=== PATIENT | female | born 1985 | race Caucasian/White ===

== ENCOUNTER 2017-12-09 18:43 | Emergency (ER) | payer BC, OTHER ==
[~2017-12-09] VITALS: Ht 154.9 cm; Wt 89.6 kg
[~2017-12-09 18:43] MED LIST: IBUP600T44 PO; PRENTAB26 PO; VALA1TAB2 PO
[2017-12-09 18:50] VITALS: TEMP 36.7; Ht 154.9 cm; Wt 89.6 kg
[2017-12-09] MEDS ORDERED: DIAZEPAM 5MG TAB PO STA ×2 (19:33→21:39)
[2017-12-09] MEDS ORDERED: KETOROLAC TROMETHAMINE 30 MG/ML VIAL IV STA (19:33)
[2017-12-09] MEDS ORDERED: SODIUM CHLORIDE 0.9% 1000ML 1,000 ML IV STA (19:33)
[2017-12-09] MEDS ORDERED: DEXAMETHASONE **PF** INJ 10 MG/ML VIAL IV ONE (19:45)
[2017-12-09 20:07] LABS: BASO % 0.2 %; BASO ABS # 0.02 K/uL (0-0.2); EOS % 1.8 %; EOS ABS # 0.16 K/uL (0-0.5); HEMATOCRIT 43.9 % (37-47); HEMOGLOBIN 15.3 g/dL (12.0-16.0); IG# 0.02 K/uL (0.00-0.02); LYMPH % 32.8 %; LYMPH ABS # 2.88 K/uL (1.2-3.4); MEAN CORPUSCULAR HGB CONC 34.9 g/dl (32-36); MEAN PLATELET VOLUME 8.9 fL (7.4-10.4); MONO % 6.7 %; MONO ABS # 0.59 K/uL (0.11-0.59); NEUT % 58.3 %; NEUT ABS # 5.11 K/uL (1.4-6.5); PLATELET COUNT 240 K/uL (130-400); RED CELL DISTRIBUTION WIDTH CV 12.6 % (11.5-14.5); RED CELL DISTRIBUTION WIDTH SD 40.6 fL (36.4-46.3); WHITE BLOOD COUNT 8.78 K/uL (4.8-10.8)
[2017-12-09 20:28] LABS: ALBUMIN 3.9 gm/dl (3.4-5.0); ALT/SGPT 47 U/L (12-78); AST/SGOT 23 U/L (15-37); BLOOD UREA NITROGEN 8 mg/dl (7-18); CALCIUM 9.2 mg/dl (8.5-10.1); CARBON DIOXIDE 28 mmol/L (21-32); CREATININE 0.88 mg/dl (0.60-1.20); GLUCOSE 77 mg/dl (70-99); LIPASE 131 U/L (73-393); POTASSIUM 4.4 mmol/L (3.5-5.1); SODIUM 136 mmol/L (136-145); TOTAL PROTEIN 7.9 gm/dl (6.4-8.2)
[2017-12-09 20:29] LABS: ALKALINE PHOSPHATASE 64 U/L (45-117)
--- NOTE | 2017-12-09 20:57 | DIAGNOSTIC IMAGING REPORT ---
EXAMINATION: RENAL ULTRASOUND CLINICAL HISTORY: right flank pain COMPARISON STUDY: CT scan performed May 2009 FINDINGS: The right kidney measures 10.2 cm. The left kidney measures 10.1 cm. There is no evidence of hydronephrosis. There are no renal masses. No bladder abnormalities are visualized. Bilateral ureteral jets were visualized. There is a nonspecific 11 mm hypoechoic focus within the right lobe of the liver. IMPRESSION : 1. Indeterminate 11 mm hypoechoic focus within the right lobe of the liver 2. Otherwise normal renal ultrasound. No evidence of hydronephrosis. Electronically signed by: Bertin Landa M.D. 12/09/2017 8:56 PM Dictated Date/Time: 12/09/2017 8:54 PM
[2017-12-09] MEDS ORDERED: IBUP-1451 PO (21:37)
--- NOTE | 2017-12-09 21:39 | EMERGENCY ROOM VISIT NOTE ---
History Report prepared by Francisca: Sydney Marino Under the Supervision of: Dr. Gold Summers M.D. First contact with patient: 19:05 Chief Complaint: BACK PAIN Stated Complaint: EXTREME LOWER BACK PAIN History of Present Illness The patient is a 32 year old female who presents to the Emergency Room with complaints of worsening back pain starting 2 days ago. The pain started in her right lower back and has spread across her lower back. The pain started after she bent over. She has been taking ibuprofen and Tylenol to no significant relief. She is able to walk around. She denies any fever, chills, cough, congestion, nausea, vomiting, urinary symptoms, or diarrhea. She notes that she has intermittent spotting from her Mirena. She denies having any increased bleeding. She has not had back pain from her Mirena before. He has a history of tubal ligation. She notes that she fell 1 week ago and landed on her knee. She did not have back pain after the fall. Source of History: patient Onset: 2 days ago Position: back (lower) Quality: other (pain) Timing: worsening Associated Symptoms: No fevers, No chills, No cough, No nausea, No vomiting , No diarrhea, No urinary symptoms Review of Systems See HPI for pertinent positives and negatives. A total of ten systems were reviewed and were otherwise negative. Past Medical & Surgical Medical Problems: (1) Anxiety (2) Vaginal delivery Family History Cancer Diabetes mellitus Gallbladder disease Hypertension Kidney disease Kidney stones Social History Smoking Status: Former Smoker Marital Status: Occupation Status: employed Current/Historical Medications Scheduled Multivit/Min/Iron/Fol Ac/Pren ( Vitamin), 1 TAB PO DAILY Valacyclovir Hcl (Valtrex), 1,000 MG PO TID Scheduled PRN Ibuprofen (Motrin), 600 MG PO Q4H PRN Ibuprofen Tab (Motrin), 800 MG PO Q8H PRN for Pain Allergies Coded Allergies: Cat Dander (Unverified Allergy, ., 09/04/12) Dog Dander (Unverified Allergy, ., 09/04/12) Physical Exam Vital Signs Date Time Temp Pulse Resp B/P (MAP) Pulse Ox O2 Delivery O2 Flow Rate FiO2 12/09/17 22:03 90 18 118/65 97 12/09/17 18:50 36.7 96 16 147/100 98 Room Air Physical Exam GENERAL: Awake, alert, well-appearing, in no distress HENT: Normocephalic, atraumatic. Dry mucous membranes. EYES: Normal conjunctiva. Sclera non-icteric. NECK: Supple. No nuchal rigidity. FROM. No JVD. RESPIRATORY: Clear to auscultation. CARDIAC: Regular rate, normal rhythm. Extremities warm and well perfused. Pulses equal. ABDOMEN: Soft, non-distended. No tenderness to palpation. No rebound or guarding. No masses. RECTAL: Deferred. MUSCULOSKELETAL: Chest examination reveals no tenderness. Mild lumbar tenderness to palpation, no midline pain or step offs. Negative straight leg raise. There is no CVA tenderness to palpation. No joint edema. LOWER EXTREMITIES: Calves are equal size bilaterally and non-tender. No edema. No discoloration. NEURO: Normal sensorium. No sensory or motor deficits noted. 5/5 strength lower extremities including L5. SILT. SKIN: No rash or jaundice noted. Medical Decision & Procedures ER Provider Diagnostic Interpretation: Radiology results as stated below per my review and radiologist interpretation: EXAMINATION: RENAL ULTRASOUND CLINICAL HISTORY: right flank pain COMPARISON STUDY: CT scan performed May 2009 FINDINGS: The right kidney measures 10.2 cm. The left kidney measures 10.1 cm. There is no evidence of hydronephrosis. There are no renal masses. No bladder abnormalities are visualized. Bilateral ureteral jets were visualized. There is a nonspecific 11 mm hypoechoic focus within the right lobe of the liver. IMPRESSION : 1. Indeterminate 11 mm hypoechoic focus within the right lobe of the liver 2. Otherwise normal renal ultrasound. No evidence of hydronephrosis. Electronically signed by: Bertin Landa M.D. 12/09/2017 8:56 PM Dictated Date/Time: 12/09/2017 8:54 PM Laboratory Results 12/09/17 19:55 Red Blood Count 4.93, Mean Corpuscular Volume 89.0, Mean Corpuscular Hemoglobin 31.0, Mean Corpuscular Hemoglobin Concent 34.9, Mean Platelet Volume 8.9, Neutrophils (%) (Auto) 58.3, Lymphocytes (%) (Auto) 32.8, Monocytes (%) (Auto) 6.7, Eosinophils (%) (Auto) 1.8, Basophils (%) (Auto) 0.2, Neutrophils # (Auto) 5.11, Lymphocytes # (Auto) 2.88, Monocytes # (Auto) 0.59, Eosinophils # (Auto) 0.16, Basophils # (Auto) 0.02 12/09/17 19:55 Test 12/09/17 19:00 12/09/17 19:55 Urine Color YELLOW Urine Appearance CLOUDY (CLEAR) Urine pH 5.0 (4.5-7.5) Urine Specific [place] 1.011 (1.000-1.030) Urine Protein NEG (NEG) Urine Glucose (UA) NEG (NEG) Urine Ketones NEG (NEG) Urine Occult Blood 1+ (NEG) Urine Nitrite NEG (NEG) Urine Bilirubin NEG (NEG) Urine Urobilinogen NEG (NEG) Urine Leukocyte Esterase TRACE (NEG) Urine WBC (Auto) 1-5 /hpf (0-5) Urine RBC (Auto) 0-4 /hpf (0-4) Urine Hyaline Casts (Auto) 0 /lpf (0-5) Urine Epithelial Cells (Auto) 10-20 /lpf (0-5) Urine Bacteria (Auto) NEG (NEG) White Blood Count 8.78 K/uL (4.8-10.8) Red Blood Count 4.93 M/uL (4.2-5.4) Hemoglobin 15.3 g/dL (12.0-16.0) Hematocrit 43.9 % (37-47) Mean Corpuscular Volume 89.0 fL (80-100) Mean Corpuscular Hemoglobin 31.0 pg (25-34) Mean Corpuscular Hemoglobin Concent 34.9 g/dl (32-36) Platelet Count 240 K/uL (130-400) Mean Platelet Volume 8.9 fL (7.4-10.4) Neutrophils (%) (Auto) 58.3 % Lymphocytes (%) (Auto) 32.8 % Monocytes (%) (Auto) 6.7 % Eosinophils (%) (Auto) 1.8 % Basophils (%) (Auto) 0.2 % Neutrophils # (Auto) 5.11 K/uL (1.4-6.5) Lymphocytes # (Auto) 2.88 K/uL (1.2-3.4) Monocytes # (Auto) 0.59 K/uL (0.11-0.59) Eosinophils # (Auto) 0.16 K/uL (0-0.5) Basophils # (Auto) 0.02 K/uL (0-0.2) RDW Standard Deviation 40.6 fL (36.4-46.3) RDW Coefficient of Variation 12.6 % (11.5-14.5) Immature Granulocyte % (Auto) 0.2 % Immature Granulocyte # (Auto) 0.02 K/uL (0.00-0.02) Anion Gap 3.0 mmol/L (3-11) Est Creatinine Clear Calc Drug Dose 94.3 ml/min Estimated GFR () 101.5 Estimated GFR (Non- 87.6 BUN/Creatinine Ratio 8.8 (10-20) Calcium Level 9.2 mg/dl (8.5-10.1) Total Bilirubin 0.2 mg/dl (0.2-1) Direct Bilirubin < 0.1 mg/dl (0-0.2) Aspartate Amino Transf (AST/SGOT) 23 U/L (15-37) Alanine Aminotransferase (ALT/SGPT) 47 U/L (12-78) Alkaline Phosphatase 64 U/L (45-117) Total Protein 7.9 gm/dl (6.4-8.2) Albumin 3.9 gm/dl (3.4-5.0) Lipase 131 U/L (73-393) Laboratory results reviewed by me Medications Administered Medications (Trade) Dose Ordered Sig/Everardo Route Start Time Stop Time Status Last Admin Dose Admin Sodium Chloride 1,000 ml @ 999 mls/hr Q1H1M STAT IV 12/09/17 19:33 12/09/17 20:33 DC 12/09/17 20:00 999 MLS/HR Ketorolac Tromethamine (Toradol Inj) 15 mg NOW STAT IV 12/09/17 19:33 12/09/17 19:36 DC 12/09/17 20:02 15 MG Dexamethasone Sodium Phosphate (Dexamethasone Inj Pf) 10 mg NOW ONCE IV 12/09/17 19:45 12/09/17 19:46 DC 12/09/17 20:01 10 MG Diazepam (Valium Tab) 5 mg NOW STAT PO 12/09/17 19:33 12/09/17 19:36 DC 12/09/17 20:02 5 MG Diazepam (Valium Tab) 2 mg NOW STAT PO 12/09/17 21:39 12/09/17 21:41 DC 12/09/17 21:39 2 MG ED Course 1924: The patient was evaluated in room C8. A complete history and physical exam was performed. 2124: I reevaluated the patient. Discussed results and discharge instructions: She verbalized understanding and agreement. The patient is ready for discharge. Medical Decision I reviewed the patient's past medical history, medications, and the nursing notes as described above. Differential diagnosis: muscular strain, lumbar radiculopathy, disc herniation, disc bulge, UTI, pyelonephritis, ureteral stone. The patient is a 32-year-old woman who presents emergency Department with lumbar back pain in the setting of bending over to pick something up on Saturday per hpi. Arrival the patient is no acute distress, afebrile stable vital signs. On exam, the patient has mild tenderness to the bilateral lumbar muscles without any midline tenderness or step-offs. The patient also has mild suprapubic tenderness but no peritoneal signs. Labs are unremarkable including WBC within normal limits. UA negative for infection. Renal US negative for hydronephrosis. Patient feeling improved after IV fluid hydration, Toradol, dexamethasone, Valium. Sx most consistent with muscular strain. Findings and plan for follow-up reviewed with patient. Patient agreeable and d/c'd per discharge instructions. Medication Reconcilliation Current Medication List: was personally reviewed by me Blood Pressure Screening Patient's blood pressure: Elevated blood pressure Blood pressure disposition: Elevated BP felt to be situational Impression Primary Impression: Strain of lumbar paraspinous muscle Scribe Attestation The scribe's documentation has been prepared under my direction and personally reviewed by me in its entirety. I confirm that the note above accurately reflects all work, treatment, procedures, and medical decision making performed by me. Departure Information Dispostion Home / Self-Care Prescriptions Ibuprofen Tab (MOTRIN) 800 Mg Tab 800 MG PO Q8H Y for Pain for 7 Days, #21 TAB Prov: Gold Summers M.D. 12/09/17 Referrals Kalyan Elaine D.O. (PCP) Patient Instructions ED Exercises Lumbar Muscles, ED Sprain Strain Lumbar, My [facility] Additional Instructions Please follow up with your primary care physician within a week for re- evaluation. You likely have a muscle strain. Otherwise, your exam, lab results, ultrasound of your kidneys did not show signs of an emergent condition at this time. Acetaminophen and Ibuprofen for pain as needed. Heating pad for muscle relaxation at 20 minute intervals throughout the day for muscle relaxation. Valium as needed for additional muscle relaxation. Ensure hydration. Return to the emergency department for worsening symptoms as described in the accompanying instructions. Work Instructions Return To Work: 5 days Additional Instructions: Please excuse from work or allow modified duties for the next 5 days and thereafter as determined by her doctor.
[2017-12-09] MEDS ORDERED: EMPTY 8 DRAM VIAL ONE (21:47)
[2017-12-09 22:03] VITALS: BP 118/65; PULSE 90; O2SAT 97
== END 2017-12-09 22:05 | disposition home or self-care (01) ==
LOC: C.EDB 18:46 → C.EDC 22:05
DX: S39.012A Strain of muscle, fascia and tendon of lower back, initial encounter (principal); X58.XXXA Exposure to other specified factors, initial encounter; Z97.5 Presence of (intrauterine) contraceptive device; Z87.891 Personal history of nicotine dependence; Z80.9 Family history of malignant neoplasm, unspecified; Z83.3 Family history of diabetes mellitus; Z83.79 Family history of other diseases of the digestive system; Z82.49 Family history of ischemic heart disease and other diseases of the circulatory system; Z84.1 Family history of disorders of kidney and ureter

== ENCOUNTER → 2018-01-06 | Outpatient (CLI) | payer OTHER ==
[2018-01-06 11:14] LABS: BASO % 0.2 %; BASO ABS # 0.02 K/uL (0-0.2); EOS % 1.1 %; EOS ABS # 0.11 K/uL (0-0.5); HEMATOCRIT 40.8 % (37-47); HEMOGLOBIN 14.5 g/dL (12.0-16.0); IG# 0.04 K/uL (0.00-0.02); LYMPH % 21.4 %; MEAN CELL VOLUME 87.9 fL (80-100); MEAN CORPUSCULAR HEMOGLOBIN 31.3 pg (25-34); MEAN CORPUSCULAR HGB CONC 35.5 g/dl (32-36); MONO % 5.5 %; MONO ABS # 0.56 K/uL (0.11-0.59); NEUT % 71.4 %; NEUT ABS # 7.33 K/uL (1.4-6.5); PLATELET COUNT 224 K/uL (130-400); RED CELL DISTRIBUTION WIDTH CV 12.7 % (11.5-14.5); RED CELL DISTRIBUTION WIDTH SD 40.9 fL (36.4-46.3); WHITE BLOOD COUNT 10.26 K/uL (4.8-10.8)
[2018-01-06 14:04] LABS: ALBUMIN 3.8 gm/dl (3.4-5.0); ALT/SGPT 55 U/L (12-78); AST/SGOT 23 U/L (15-37); BLOOD UREA NITROGEN 10 mg/dl (7-18); CALCIUM 9.2 mg/dl (8.5-10.1); CARBON DIOXIDE 25 mmol/L (21-32); CHOLESTEROL 177 mg/dl (0-200); CREATININE 0.77 mg/dl (0.60-1.20); GLUCOSE 91 mg/dl (70-99); POTASSIUM 3.9 mmol/L (3.5-5.1); SODIUM 135 mmol/L (136-145)
[2018-01-06 14:15] LABS: ALKALINE PHOSPHATASE 65 U/L (45-117); LDL CHOLESTEROL CALCULATED 106 mg/dl; TOTAL PROTEIN 7.9 gm/dl (6.4-8.2)
== END | disposition home or self-care (01) ==
LOC: C.LABBC 09:05
PROVIDERS: ATTEND Neuromusculoskeletal Medicine & OMM
DX: R53.83 Other fatigue (principal); L65.9 Nonscarring hair loss, unspecified; E66.9 Obesity, unspecified

== ENCOUNTER → 2018-01-14 | Outpatient (CLI) | payer OTHER | END | disposition home or self-care (01) | LOC: C.LABSPEC 15:33 | PROVIDERS: ATTEND Physician Assistant | DX: N89.8 Other specified noninflammatory disorders of vagina (principal); R39.9 Unspecified symptoms and signs involving the genitourinary system ==

== ENCOUNTER → 2018-06-16 | Outpatient (CLI) | payer OTHER | END | disposition home or self-care (01) | LOC: C.LABSPEC 10:54 | PROVIDERS: ATTEND Urology | DX: R30.0 Dysuria (principal) ==